=== PATIENT | male | born 1955 | race Two or more races ===

== ENCOUNTER → 2018-02-05 | Outpatient (CLI) | payer OTHER | END | disposition home or self-care (01) | LOC: NUC 08:58 | DX: M19.042 Primary osteoarthritis, left hand (principal); M19.041 Primary osteoarthritis, right hand; M16.0 Bilateral primary osteoarthritis of hip; C61 Malignant neoplasm of prostate | CPT/HCPCS: 78306; A9503 ==

== ENCOUNTER → 2018-03-05 | Outpatient (CLI) | payer OTHER ==
[~2018-03-05] MED LIST: FEOSOL325 MG PO; HYDROCHLOROTHIA25 MG PO; MEVACOR20 MG PO; ZESTRIL5 MG PO
== END | disposition home or self-care (01) ==
LOC: CDC 11:01
DX: Z01.810 Encounter for preprocedural cardiovascular examination (principal); I45.4 Nonspecific intraventricular block
CPT/HCPCS: 93000

== ENCOUNTER 2018-03-08 20:29 | Inpatient (IN) | payer OTHER ==
[~2018-03-08] VITALS: Ht 177.8 cm; Wt 65.8 kg
[2018-03-09 06:01] VITALS: BP 141/76
[2018-03-09 06:31] VITALS: BP 141/76
[2018-03-09] MEDS ORDERED: PERCOCET 5/31 TABLET PO (09:38)
[2018-03-09 14:30] VITALS: BP 116/61
[2018-03-09 15:30] LABS: HEMATOCRIT 36.5 % (38.0-50.0); HEMOGLOBIN 12.7 G/DL (12.5-16.6); MCV 92.4 FL (86-99)
[2018-03-09 16:43] VITALS: BP 123/67
[2018-03-10 01:39] VITALS: BP 105/57
[2018-03-10 04:00] VITALS: BP 110/84
[2018-03-10 07:30] VITALS: BP 133/65
[2018-03-10 16:33] VITALS: BP 112/59
[2018-03-10 21:23] VITALS: BP 121/69
[2018-03-10 22:46] VITALS: BP 116/65
[2018-03-11 03:57] VITALS: BP 109/63
[2018-03-11 07:40] VITALS: BP 119/72
[2018-03-11 15:35] VITALS: BP 149/83
[2018-03-11 23:05] VITALS: BP 134/78
[2018-03-12 07:33] VITALS: BP 127/76
== END 2018-03-12 16:47 | disposition home or self-care (01) | DRG 708 ==
LOC: 2SOUTH → ENRESERV 20:29 → 5EAST 03-09 05:32 → 2SOUTH 03-09 05:32 → ENRESERV 03-09 07:02 → 2SOUTH 03-09 08:43 → ENRESERV 03-09 12:35 → 5EAST 03-09 14:02 → ENPENDDIS 03-12 → 5EAST 03-12 16:47
PROVIDERS: Urology
DX: C61 Malignant neoplasm of prostate (principal); K40.90 Unilateral inguinal hernia, without obstruction or gangrene, not specified as recurrent; I10 Essential (primary) hypertension; E78.5 Hyperlipidemia, unspecified
CPT/HCPCS: 85014; 85018; 88305; 88309; J0131; J0330; J0690; J1170; J1885; J2250; J3010; J7120